=== PATIENT | male | born 2000 | race Two or more races ===

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

== ENCOUNTER 2022-04-29 10:14 | Emergency (ER) | payer MEDICAID ==
[~2022-04-29] VITALS: Ht 182.9 cm; Wt 76.0 kg
[2022-04-29 12:12] LABS: Basophils # (auto) 0 10 ^3/uL (0-0.2); Basophils % (auto) 0.1 % (0.0-2.0); Eosinophils # (auto) 0 10 ^3/uL (0-0.8); Eosinophils % (auto) 0.3 % (0.0-7.0); Hematocrit 47.8 % (41.0-53.0); Hemoglobin 15.6 g/dL (13.5-17.5); Lymphocytes % (auto) 7.6 % (10.0-50.0); Mean Corpuscular Hemoglobin 29.2 pg (28.0-32.0); Mean Corpuscular Hgb Conc. 32.6 g/dL (32.0-36.0); Mean Corpuscular Volume 89.5 fL (80.0-100.0); Monocytes # (auto) 0.6 10 ^3/uL (0-1.3); Monocytes % (auto) 4.3 % (0.0-12.0); Neutrophils # (auto) 11.9 10 ^3/uL (1.6-8.6); Neutrophils % (auto) 87.7 % (37.0-80.0); Red Blood Cells 5.34 10^6/uL (4.5-5.90); Red Cell Distribution Width 13.7 % (11.8-14.3); White Blood Cell 13.6 10^3/uL (4.4-10.8)
[2022-04-29 12:31] LABS: Albumin 4.2 g/dL (3.4-5.0); Anion Gap 7 (5-15); Blood Alcohol < 3.0 mg/dL (0-5); Blood Urea Nitrogen 9 mg/dL (7-18); Calcium 9.1 mg/dL (8.5-10.1); Carbon Dioxide 26 mmol/L (21-32); Chloride 108 mmol/L (98-107); Glucose 98 mg/dL (74-106); Lipase 70 U/L (73-393); Potassium 3.9 mmol/L (3.5-5.1); Sodium 141 mmol/L (136-145)
[2022-04-29 12:34] LABS: Alanine Aminotransferase 20 U/L (16-61); Alkaline Phosphatase 70 U/L (45-117); Aspartate Aminotransferase 11 U/L (15-37); BUN/Creatinine Ratio 11.8; Bilirubin, Total 0.9 mg/dL (0.2-1.0); GFR African American 167 mL/min; GFR Non-African American 138 mL/min; Total Protein 7.7 g/dL (6.4-8.2)
[2022-04-29 13:21] VITALS: BP 108/74
[2022-04-29] MEDS ORDERED: AZIT250T8 PO (13:23)
== END 2022-04-29 13:29 | disposition home or self-care (01) ==
LOC: ER 10:14
DX: K29.00 Acute gastritis without bleeding (principal); J02.9 Acute pharyngitis, unspecified
CPT/HCPCS: 36415; 74176; 80053; 80320; 83690; 85025